=== PATIENT | male | born 1945 | race Caucasian/White ===

== ENCOUNTER 2017-01-03 15:52 | Observation (INO) | payer MEDICARE, OTHER ==
[~2017-01-03] VITALS: Ht 170.2 cm; Wt 107.6 kg
[~2017-01-03 15:52] MED LIST: ASP81TEC PO; ATOR40TA PO; ATR20T PO; BENA1TAB12 PO; DICL50TA4 PO; FEXO-104 PO; LOSA25TA5 PO; NABU750T PO; OMEG1CAP51 PO; OMEP20CA12 PO; OMG1KC PO; SLMFT1E INH; TEST75GE3 TD
--- OUTSIDE RECORDS SUMMARY | 2017-01-03 15:58 | XMS REPORT | Continuity of Care Document ---
Author Author [facility] Organization [facility] Address Unknown Phone Unavailable Care Team Providers Care Lineman A Class Name Role Phone Therese Avila PCP [phone] Source Comments Some departments are not documenting in the electronic medical record. If you do not see the information that you expected, contact Release of Information in the Health Information Management department at [phone] for further assistance in locating additional records.[facility] Active Allergies and Adverse Reactions No Active Allergies Current Medications Prescription Sig. Disp. Refills Start End Date Status Date losartan/hydrochlorothiaz Take 1 Tab by mouth Active coty (HYZAAR) 100/25 mg daily. tablet 1 Tab atorvastatin (LIPITOR) 40 Take 40 mg by mouth Active mg tablet daily. diclofenac sodium DR Take 75 mg by mouth twice Active (VOLTAREN) 75 mg tablet daily. omeprazole DR(+) Take 20 mg by mouth Active (PRILOSEC) 20 mg capsule daily. aspirin 81 mg chewable Take 81 mg by mouth Active tablet daily. fexofenadine(+) (DASH) Take 180 mg by mouth Active 180 mg tablet daily. [place]-3 Fatty Take 1 Cap by mouth Active Acids-Vitamin E (FISH daily. OIL) 1,000 mg cap albuterol (VENTOLIN HFA, Inhale 2 Puffs by mouth Active PROAIR HFA) 90 every 4 hours as needed. mcg/actuation inhaler testosterone (ANDROGEL) Apply to top of skin as Active 1.62 % (20.25 mg/1.25 directed. 2 pumps rubbed gram) GlPk into skin daily fluticasone-salmeterol Inhale 1 Puff by mouth Active (ADVAIR DISKUS) 250-50 every 12 hours. mcg inhalation disk HYDROcodone/acetaminophen Take 1-2 Tabs by mouth Active (NORCO; VICODIN) 5-325 mg every 6 hours as needed. 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 Social History Tobacco Use Types Packs/Day Years Used Date Former Smoker Comments: quit 2005 Alcohol Use Drinks/Week oz/Week Comments Yes Last Filed Vital Signs Vital Sign Reading Time Taken Blood Pressure 123/65 02/14/2013 12:23 PM CDT Pulse 76 02/14/2013 12:23 PM CDT Temperature 37.3 C (99.1 F) 02/14/2013 12:23 PM CDT Respiratory Rate - - Height - - Weight 105.416 kg (232 lb 6.4 02/14/2013 12:23 PM CDT oz) Body Mass Index - - Oxygen Saturation - - Plan of Care Health Maintenance Due Date Last Done Comments Physical (Comprehensive) 02/12/1952 Exam Pertussis Vaccine 02/12/1956 Tetanus Vaccine 1962 Colorectal Cancer 1995 Screening Shingles Vaccine 2005 Prevnar/Pneumovax (#1) 2010 Influenza Vaccine 06/23/2016 Results from Last 3 Months Not on file
[2017-01-03] MEDS ORDERED: RT-ALBUTEROL/IPRATROPIUM 3 ML (DUONEB) VIAL INH ONE ×2 (16:15→16:30)
[2017-01-03] MEDS ORDERED: methylPREDNISolone 125 MG (Solu-MEDROL) VIAL IVP ONE (16:30)
[2017-01-03 16:43] LABS: ABG BASE EXCESS -3.6 MMOL/L (-2.5-2.5); ABG HCO3 20 MMOL/L (23-27); ABG OXYGEN SATURATION 89 % (94-100); ABG PCO2 34 MMHG (35-45); ABG PO2 63 MMHG (79-93); ABG TCO2 21.2 MMOL/L (21.0-31.0)
[2017-01-03 16:44] LABS: ALLENS TEST YES-POS; PATIENT TEMP 101
--- NOTE | 2017-01-03 16:49 | Diagnostic Imaging Report ---
Portable upright radiograph of the chest. INDICATION: Shortness of breath. FINDINGS: There is mild left basilar atelectasis. The right lung is clear. The heart size is normal. There is no effusion or pneumothorax. The mediastinum and wilmar appear unremarkable. IMPRESSION: Left basilar atelectasis. Dictated by: Dictated on workstation # [id number]
[2017-01-03 16:54] LABS: BASOPHILS % (AUTO) 0 % (0-10); EOSINOPHILS # (AUTO) 0.1 10^3/uL (0.0-0.3); EOSINOPHILS % (AUTO) 1 % (0-10); LYMPHOCYTES # (AUTO) 1.1 X 10^3 (1.0-4.0); LYMPHOCYTES % (AUTO) 11 % (12-44); MEAN CORPUSCULAR HEMOGLOBIN 31 PG (25-34); MEAN CORPUSCULAR HGB CONC 34 G/DL (32-36); MEAN CORPUSCULAR VOLUME 92 FL (80-99); MEAN PLATELET VOLUME 9.9 FL (7.4-10.4); MONOCYTES # (AUTO) 0.6 X 10^3 (0.0-1.0); MONOCYTES % (AUTO) 5 % (0-12); NEUTROPHILS # (AUTO) 8.8 X 10^3 (1.8-7.8); NEUTROPHILS % (AUTO) 83 % (42-75); PLATELET COUNT 204 10^3/uL (130-400); RED BLOOD COUNT 4.69 10^6/uL (4.35-5.85); RED CELL DISTRIBUTION WIDTH 13.5 % (10.0-14.5); WHITE BLOOD COUNT 10.6 10^3/uL (4.3-11.0)
--- NOTE | 2017-01-03 16:57 | ED Cough/URI ---
General Chief Complaint: Respiratory Problems Stated Complaint: CONGESTION,SOA Nursing Triage Note: c/o difficulty breathing. Onset 4-5 days ago. Fever noted. Source: patient Exam Limitations: no limitations History of Present Illness Time seen by provider: 16:56 Initial Comments To ER with difficulty breathing for the past 4-5 days but became significant only worse this morning. He does wear oxygen and a C Pap at night for history of COPD. He is febrile at 101. He does not wear oxygen during the day. Timing/Duration: week, getting worse Severity/Quality: moderate Associated Symptoms: cough Allergies and Home Medications Allergies Coded Allergies: No Known Drug Allergies (Unverified , 04/27/10) Home Medications Aspirin 81 Mg Tabec 81 MG PO DAILY (Reported) Atorvastatin Calcium 40 Mg Tablet 1 EACH PO DAILY (Reported) Diclofenac Potassium 50 Mg Tablet 50 MG PO BID (Reported) Losartan Potassium 25 Mg Tablet 25 MG PO DAILY (Reported) [place]-3 Fatty Acids/Fish Oil 1 Each Capsule 1 EACH PO TID (Reported) Omeprazole 20 Mg Capsule.dr #30 1 CAP PO DAILY (Reported) Salmeterol Xinaf/Fluticasone 1 Diskus Inhp 0 INH DAILY (Reported) ONE PUFF Testosterone 75 Gm Gel.lacquer shader 75 GM TD (Reported) Constitutional: see HPINo chills EENTM: see HPI Respiratory: see HPI cough Cardiovascular: no symptoms reported Genitourinary: no symptoms reported Musculoskeletal: no symptoms reported Skin: no symptoms reported Psychiatric/Neurological: No Symptoms Reported Hematologic/Lymphatic: No Symptoms Reported Past Ilvmjzm-Fjqvcc-Agayfm Hx Patient Social History Alcohol Use: Regular Use Recreational Drug Use: No Smoking Status: Former Smoker Recent Foreign Travel: No Contact w/Someone Who Travel: No Recent Infectious Disease Expo: No Immunizations Up To Date Date of Pneumonia Vaccine: Aug 24, 2010 Date of Influenza Vaccine: Jul 24, 2012 Respiratory Hx Respiratory Disorders: Yes Cardiovascular Hx Cardiac Disorders: Yes Neurological Hx Neurological Disorders: No Reproductive System Hx Reproductive Disorders: No Genitourinary Hx Genitourinary Disorders: No Gastrointestinal Hx Gastrointestinal Disorders: Yes (GAS) Musculoskeletal Hx Musculoskeletal Disorders: No Endocrine Hx Endocrine Disorders: Yes HEENT HX ENT Disorders: No Blood Transfusions Hx Blood Disorders: No Physical Exam Vital Signs Vital Sign - Last 12Hours 01/03/17 01/03/17 16:22 16:30 Temp 100.3 B/P 166/80 Pulse Ox 92 O2 Delivery High Flow NC O2 Flow Rate 4 Capillary Refill : Less Than 3 Seconds General Appearance: WD/WN mild distress no apparent distress Eyes: Bilateral Eye EOMI, Bilateral Eye Normal Inspection, Bilateral Eye PERRL HEENT: PERRL/EOMI normal ENT inspection Respiratory: no respiratory distress no accessory muscle use accessory muscle use other (decreased lung sounds in the right base) Cardiovascular: regular rate, rhythm no murmur Gastrointestinal: non tender soft Extremities: normal range of motion non-tender Neurologic/Psychiatric: alert normal mood/affect oriented x 3 Skin: normal color warm/dry Focused Exam Lactic Acid Level Laboratory Tests Test 01/03/17 16:46 Alanine Aminotransferase (ALT/SGPT) 30U/L (0-55) Albumin 4.4G/DL (3.2-4.5) Alkaline Phosphatase 121U/L (40-136) Anion Gap 14MMOL/L (5-14) Aspartate Amino Transf (AST/SGOT) 16U/L (5-34) BUN/Creatinine Ratio 13 Blood Urea Nitrogen 18MG/DL (7-18) Calcium Level 9.4MG/DL (8.5-10.1) Carbon Dioxide Level 22MMOL/L (21-32) Chloride Level 106MMOL/L (98-107) Creatinine 1.37MG/DL (0.60-1.30) H Estimat Glomerular Filtration Rate 51 Glucose Level 173MG/DL (70-105) H Lactic Acid Level 1.86MMOL/L (0.50-2.00) Potassium Level 4.3MMOL/L (3.6-5.0) Sodium Level 142MMOL/L (135-145) Total Bilirubin 0.5MG/DL (0.1-1.0) Total Protein 7.7G/DL (6.4-8.2) Progress/Results/Core Measures Results/Orders Lab Results Laboratory Tests Test 01/03/17 16:35 01/03/17 16:46 Range/Units Vaibhav Test YES-POS Arterial Blood Base Excess -3.6 L -2.5-2.5 MMOL/L Arterial Blood HCO3 20 L 23-27 MMOL/L Arterial Blood Oxygen Saturation 89 L 94-100 % Arterial Blood Partial Pressure CO2 34 L 35-45 MMHG Arterial Blood Partial Pressure O2 63 L 79-93 MMHG Arterial Blood Total CO2 21.2 21.0-31.0 MMOL/L Arterial Blood pH 7.40 7.37-7.43 Blood Gas Inspired Oxygen 4L Blood Gas Patient Temperature 101 Blood Gas Puncture Site RT RAD Blood Gas Ventilator Setting NO Activated Partial Thromboplast Time 25 24-35 SEC Alanine Aminotransferase (ALT/SGPT) 30 0-55 U/L Albumin 4.4 3.2-4.5 G/DL Alkaline Phosphatase 121 40-136 U/L Anion Gap 14 5-14 MMOL/L Aspartate Amino Transf (AST/SGOT) 16 5-34 U/L BUN/Creatinine Ratio 13 Basophils # (Auto) 0.0 0.0-0.1 10^3/uL Basophils (%) (Auto) 0 0-10 % Blood Urea Nitrogen 18 7-18 MG/DL Calcium Level 9.4 8.5-10.1 MG/DL Carbon Dioxide Level 22 21-32 MMOL/L Chloride Level 106 98-107 MMOL/L Creatinine 1.37 H 0.60-1.30 MG/DL Eosinophils # (Auto) 0.1 0.0-0.3 10^3/uL Eosinophils (%) (Auto) 1 0-10 % Estimat Glomerular Filtration Rate 51 Glucose Level 173 H 70-105 MG/DL Hematocrit 43 40-54 % Hemoglobin 14.6 13.3-17.7 G/DL INR Comment 1.1 0.8-1.4 Lactic Acid Level 1.86 0.50-2.00 MMOL/L Lymphocytes # (Auto) 1.1 1.0-4.0 X 10^3 Lymphocytes (%) (Auto) 11 L 12-44 % Mean Corpuscular Hemoglobin 31 25-34 PG Mean Corpuscular Hemoglobin Concent 34 32-36 G/DL Mean Corpuscular Volume 92 80-99 FL Mean Platelet Volume 9.9 7.4-10.4 FL Monocytes # (Auto) 0.6 0.0-1.0 X 10^3 Monocytes (%) (Auto) 5 0-12 % Neutrophils # (Auto) 8.8 H 1.8-7.8 X 10^3 Neutrophils (%) (Auto) 83 H 42-75 % Platelet Count 204 130-400 10^3/uL Potassium Level 4.3 3.6-5.0 MMOL/L Prothrombin Time 13.7 12.2-14.7 SEC Red Blood Count 4.69 4.35-5.85 10^6/uL Red Cell Distribution Width 13.5 10.0-14.5 % Sodium Level 142 135-145 MMOL/L Total Bilirubin 0.5 0.1-1.0 MG/DL Total Protein 7.7 6.4-8.2 G/DL White Blood Count 10.6 4.3-11.0 10^3/uL Micro Results Microbiology 01/03/17 Influenza Types A,B Antigen (ALECIA) - Final, Complete My Orders Orders-VIRIDIANA PELAYO [employer]PERATOR Methylprednisolone Sod Succ (Solu-Medrol (01/03/17 16:30) Albuterol/Ipra Inhalation Soln (Duoneb I (01/03/17 16:30) Svn Sm Volume Nebulizer Rt-Rfs (01/03/17 16:30) Arterial Blood Gas (01/03/17 16:30) Acetaminophen Tablet (Tylenol Tablet) (01/03/17 17:30) Medications Given in ED Current Medications Medications Dose Ordered Sig/Malik Route Start Time Stop Time Status Last Admin Dose Admin Acetaminophen 1,000 mg ONCE ONCE PO 01/03/17 17:30 01/03/17 17:31 DC 01/03/17 17:36 1,000 MG Albuterol/ Ipratropium 3 ml ONCE ONCE INH 01/03/17 16:15 01/03/17 16:16 DC 01/03/17 16:21 3 ML Methylprednisolone Sodium Succinate 125 mg ONCE ONCE IVP 01/03/17 16:30 01/03/17 16:32 DC 01/03/17 17:36 125 MG Vital Signs/I&O Vital Sign - Last 12Hours 01/03/17 01/03/17 16:22 16:30 Temp 100.3 B/P 166/80 Pulse Ox 92 93 O2 Delivery High Flow NC O2 Flow Rate 4 Blood Pressure Mean: 108 Diagnostic Imaging Diagonstic Imaging: Xray Plain Films/CT/US/NM/MRI: chest Comments NAME: ASHUTOSH YBARRA MED REC#: [id number] PT STATUS: REG ER : 1945 PHYSICIAN: LEONARD MATOS MD ADMIT DATE: 01/03/17/ER Signed Date of Exam:01/03/17 CHEST 1 VIEW, AP/PA ONLY Portable upright radiograph of the chest. INDICATION: Shortness of breath. FINDINGS: There is mild left basilar atelectasis. The right lung is clear. The heart size is normal. There is no effusion or pneumothorax. The mediastinum and wilmar appear unremarkable. IMPRESSION: Left basilar atelectasis. Dictated by: Dictated on workstation # [id number] Dict: 01/03/17 1646 Trans: 01/03/17 1657 [facility] [id number] Interpreted by: HIEN STEELE MD Electronically signed by: HIEN STEELE MD 01/03/17 1700 Departure Impression Impression: Primary Impression: COPD exacerbation Additional Impression: Influenza Disposition: ADMITTED INPATIENT Condition: Stable Decision to Admit Reason: Admit from ER (General) Decision to Admit/Date: Jan 03, 2017 Time/Decision to Admit Time: 17:27 Departure-Patient Inst. Referrals: CHENCHO CONTRERAS DO (PCP/Family) Primary Care Physician VIRIDIANA PELAYO APRN Jan 03, 2017 16:57
[2017-01-03 17:11] LABS: INR 1.1 (0.8-1.4); PROTHROMBIN TIME PATIENT 13.7 SEC (12.2-14.7)
[2017-01-03 17:14] LABS: ALBUMIN 4.4 G/DL (3.2-4.5); BILIRUBIN,TOTAL 0.5 MG/DL (0.1-1.0); CALCIUM 9.4 MG/DL (8.5-10.1); CREATININE SERUM 1.37 MG/DL (0.60-1.30); POTASSIUM 4.3 MMOL/L (3.6-5.0); TOTAL PROTEIN 7.7 G/DL (6.4-8.2)
[2017-01-03] MEDS ORDERED: ACETAMINOPHEN 500 MG TAB (TYLENOL) PO ONE (17:30)
[2017-01-03] MEDS ORDERED: IBUPROFEN 800 MG (MOTRIN) TAB PO ONE (19:00)
[2017-01-03 19:20] LABS: BILIRUBIN,URINE NEGATIVE (NEGATIVE); KETONES,URINE NEGATIVE (NEGATIVE); LEUKOCYTE ESTERASE ,URINE NEGATIVE (NEGATIVE); NITRITE,URINE NEGATIVE (NEGATIVE); PH,URINE 7 (5-9); PROTEIN,URINE 2+ (NEGATIVE); UROBILINOGEN,URINE NORMAL (NORMAL)
[2017-01-03 19:27] LABS: WBC,URINE RARE /HPF
[2017-01-03 20:00] VITALS: BP 146/68
[2017-01-03] MEDS ORDERED: ACETAMINOPHEN 325 MG TABLET/CAPLET (TYLENOL) PO PRN (20:30)
[2017-01-03] MEDS: cefTRIAXone 1 GM/NS 50 ML IVPB IV SCH ×2 (21:26)
[2017-01-03] MEDS: OSELTAMIVIR 75 MG (TAMIFLU) BOX OF 10 PO SCH (21:27)
[2017-01-04] VITALS: BP 125/58
[2017-01-04 03:35] VITALS: BP 120/57
[2017-01-04] MEDS ORDERED: methylPREDNISolone 125 MG (Solu-MEDROL) VIAL IVP SCH (06:00)
[2017-01-04 06:01] LABS: BASOPHILS % (AUTO) 0 % (0-10); EOSINOPHILS % (AUTO) 0 % (0-10); LYMPHOCYTES # (AUTO) 0.8 X 10^3 (1.0-4.0); LYMPHOCYTES % (AUTO) 5 % (12-44); MEAN CORPUSCULAR HEMOGLOBIN 31 PG (25-34); MEAN CORPUSCULAR HGB CONC 34 G/DL (32-36); MEAN CORPUSCULAR VOLUME 91 FL (80-99); MEAN PLATELET VOLUME 10.4 FL (7.4-10.4); MONOCYTES # (AUTO) 0.5 X 10^3 (0.0-1.0); MONOCYTES % (AUTO) 3 % (0-12); NEUTROPHILS # (AUTO) 14.6 X 10^3 (1.8-7.8); NEUTROPHILS % (AUTO) 92 % (42-75); PLATELET COUNT 197 10^3/uL (130-400); RED BLOOD COUNT 4.25 10^6/uL (4.35-5.85); RED CELL DISTRIBUTION WIDTH 13.3 % (10.0-14.5); WHITE BLOOD COUNT 15.9 10^3/uL (4.3-11.0)
[2017-01-04 06:18] LABS: BAND NEUTROPHILS 4 %; BASOPHILS % (MANUAL) 0 %; EOSINOPHILS % (MANUAL) 0 %; LYMPHOCYTES % (MANUAL) 4 %; NEUTROPHILS % (MANUAL) 88 %
[2017-01-04] MEDS: ENOXAPARIN 40 MG/0.4 ML (LOVENOX) SYR SC SCH (07:03)
[2017-01-04 07:09] LABS: ALBUMIN 3.7 G/DL (3.2-4.5); BILIRUBIN,TOTAL 0.4 MG/DL (0.1-1.0); CALCIUM 8.8 MG/DL (8.5-10.1); CREATININE SERUM 1.35 MG/DL (0.60-1.30); POTASSIUM 4.5 MMOL/L (3.6-5.0); TOTAL PROTEIN 6.5 G/DL (6.4-8.2)
[2017-01-04] MEDS ORDERED: CATHETER FLUSH 10 ML SYR IV PRN (07:15)
--- NOTE | 2017-01-04 07:16 | History & Physical-Hospitalist ---
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 He's never had an exacerbation of COPD but began feeling feverish and lethargic and presented to the emergency room and upon workup revealed influenza A with exacerbation of COPD with hypoxia this requiring oxygen supplementation. Currently he feels much better is able to get up and around in the room and overall responding to IV steroids and Tamiflu. Source: patient Exam Limitations: no limitations Date Seen 01/04/17 Attending Physician Sudhakar Barry MD PCP Therese Avila DO Referring Physician Date of Admission Jan 03, 2017 at 17:34 Home Medications & Allergies Home Medications Reviewed patient Home Medication Reconciliation Form Allergies Coded Allergies: No Known Drug Allergies (Unverified , 04/27/10) Past Nnrrmld-Wfsgyf-Vgbdqy Hx Patient Social History Marrital Status: Employed/Student: retired Alcohol Use: Regular Use Recreational Drug Use: No Smoking Status: Former Smoker Type Used: Cigarettes Physical Abuse Screen: No Sexual Abuse: No Recent Foreign Travel: No Contact w/other who traveled: No Recent Hopitalizations: No Recent Infectious Disease Expo: No Immunizations Up To Date Date of Pneumonia Vaccine: Jul 23, 2016 Date of Influenza Vaccine: Jul 23, 2016 Seasonal Allergies Seasonal Allergies: Yes Surgeries HX Surgeries: Yes Surgeries: Eye Surgery, Orthopedic Respiratory Hx Respiratory Disorders: Yes Respiratory Disorders: COPD, Pneumonia Cardiovascular Hx Cardiovascular Disorders: Yes Cardiac Disorders: High Cholesterol, Hypertension Neurological Hx Neurological Disorders: No Reproductive System Hx Reproductive Disorders: No Genitourinary Hx Genitourinary Disorders: Yes Genitourinary Disorders: Renal Failure Gastrointestinal Hx Gastrointestinal Disorders: Yes (GAS) Gastrointestinal Disorders: Gastroesophageal Reflux, Chronic Constipation Musculoskeletal Hx Musculoskeletal Disorders: Yes Musculoskeletal Disorders: Arthritis, Chronic Back Pain, Fractures Endocrine Hx Endocrine Disorders: Yes Endocrine Disorders: Diabetes, Non-Insulin dep HEENT HX ENT Disorders: No HEENT Disorders: Cataract, Eye Injury Loss of Vision: Left Hearing Impairment: Hard of Hearing Cancer Hx Cancer: No Psychosocial Hx Psychiatric Problems: No Integumentary HX Skin/Integumentary Disorder: No Blood Transfusions Hx Blood Disorders: No Adverse Reaction to a Blood Tr: No Family Medical History Family Hx: Arthritis 19 FATHER 19 MOTHER G8 SISTER FH: breast cancer 19 MOTHER FH: congestive heart failure 19 MOTHER FH: lung cancer 19 FATHER FH: ovarian cancer G8 SISTER Seizure disorder G8 SISTER Review of Systems Constitutional: see HPI dizziness fever malaise weakness EENTM: no symptoms reported Respiratory: cough Cardiovascular: no symptoms reported Gastrointestinal: no symptoms reported Genitourinary: no symptoms reported Musculoskeletal: no symptoms reported Skin: no symptoms reported Psychiatric/Neurological: No Symptoms Reported All Other Systems Reviewed Negative Unless Noted: Yes Physical Exam Physical Exam Vital Signs Vital Sign - Last 12Hours 01/03/17 01/03/17 01/03/17 01/03/17 16:22 16:30 16:32 19:10 Temp 100.3 Pulse 105 Resp 22 B/P 166/80 Pulse Ox 92 O2 Delivery High Flow NC O2 Flow Rate 4 FiO2 92 Capillary Refill : Less Than 3 Seconds General Appearance: No Apparent Distress WD/WN Chronically ill Obese Other ( fatigued) Eyes: Bilateral Eye Normal Inspection, Bilateral Eye PERRL HEENT: PERRL/EOMI Normal ENT Inspection Pharynx Normal Neck: Full Range of Motion Normal Inspection Non Tender Supple Carotid Bruit Respiratory: Chest Non Tender No Accessory Muscle Use No Respiratory Distress Crackles Decreased Breath Sounds Wheezing Cardiovascular: Regular Rate, Rhythm No Edema No Gallop No JVD No Murmur Normal Peripheral Pulses Gastrointestinal: Normal Bowel Sounds No Organomegaly No Pulsatile Mass Non Tender Soft Back: Normal Inspection No CVA Tenderness No Vertebral Tenderness Extremity: Normal Capillary Refill Normal Inspection Normal Range of Motion Non Tender No Calf Tenderness No Pedal Edema Neurologic/Psychiatric: Alert Oriented x3 No Motor/Sensory Deficits Normal Mood/Affect Skin: Normal Color Warm/Dry Lymphatic: No Adenopathy Results Results/Procedures Lab Laboratory Tests 01/03/17 16:46 01/04/17 05:10 Assessment/Plan Admission Diagnosis Assessment: Acute influenza A with hypoxia and wheezing causing exacerbation of known COPD Hypoxia requiring oxygen supplementation Diabetes mellitus Hypertension Hyperlipidemia Chronic renal insufficiency BPH Assessment and Plan IV steroids Oxygen supplementation and home O2 evaluation Nebulizer treatments Tamiflu Check labs in a.m. SCDs and Lovenox for DVT prophylaxis Clinical Quality Measures DVT/VTE Risk/Contraindication: Risk Factor Score Per Nursin RFS Level Per Nursing on Admit: 4+=Very High THERESE AVILA DO Jan 04, 2017 07:15
[2017-01-04] MEDS: RT-ALBUTEROL/IPRATROPIUM 3 ML (DUONEB) VIAL INH SCH ×3 (07:39→14:13)
[2017-01-04] MEDS: RT-BUDESONIDE NEBS 0.5 MG/2ML (PULMICORT) AMP INH SCH ×2 (07:39→19:18)
[2017-01-04 08:00] VITALS: BP 146/69
[2017-01-04] MEDS ORDERED: LOSA1TAB70 PO (08:17)
[2017-01-04] MEDS ORDERED: OMEP20CA12 PO (08:17)
[2017-01-04] MEDS ORDERED: HYDR-3812 PO ×2 (08:17→08:29)
[2017-01-04] MEDS ORDERED: AMLO5TAB2 PO (08:17)
[2017-01-04] MEDS ORDERED: GLIM1TAB PO (08:29)
[2017-01-04] MEDS ORDERED: CARB1DRO5 OS (08:29)
[2017-01-04] MEDS ORDERED: DICL75TA2 PO (08:29)
[2017-01-04] MEDS ORDERED: PLTR10OP OS (08:29)
[2017-01-04] MEDS ORDERED: FLUT1DIS26 INH (08:29)
[2017-01-04] MEDS ORDERED: SENN-33 PO (08:29)
[2017-01-04] MEDS ORDERED: DIFL5DRO OS (08:29)
[2017-01-04] MEDS ORDERED: CARB15DR74 OU (08:29)
[2017-01-04] MEDS ORDERED: OMEG-109 PO (08:29)
[2017-01-04] MEDS ORDERED: FEXO180T84 PO (08:30)
[2017-01-04] MEDS: OSELTAMIVIR 75 MG (TAMIFLU) BOX OF 10 PO SCH ×2 (09:28→21:59)
[2017-01-04] MEDS: inSUlin ASPART (NovoLOG) 1 UNIT/0.01 ML (CHARGE PER UNIT) SC SCH ×3 (11:27→22:02)
[2017-01-04 12:00] VITALS: BP 148/67
[2017-01-04] MEDS: methylPREDNISolone 40 MG/ML (Solu-MEDROL) VIAL IV SCH ×2 (13:21→22:08)
[2017-01-04] MEDS: POLY/TRIMETH (POLYTRIM) OPHTH 10 ML BTL OS SCH ×3 (13:22→22:04)
[2017-01-04] MEDS: CATHETER FLUSH 10 ML SYR IV SCH ×2 (13:22→22:04)
[2017-01-04] MEDS: HYDROcodone/APAP 5 MG/325 MG (LORTAB) TAB PO SCH (13:23)
[2017-01-04 16:41] VITALS: BP 139/56
[2017-01-04 20:19] VITALS: BP 119/56
[2017-01-04] MEDS ORDERED: HYDROcodone/APAP 5 MG/325 MG (LORTAB) TAB PO SCH (21:00)
[2017-01-04] MEDS ORDERED: OMEPRAZOLE 20 MG (PriLOSEC) CAP PO SCH (21:00)
[2017-01-04] MEDS ORDERED: ATORVASTATIN 40 MG (LIPITOR) TABLET PO SCH (21:00)
[2017-01-04] MEDS ORDERED: ASPIRIN E.C. 81 MG (ECOTRIN) TAB PO SCH (21:00)
[2017-01-04] MEDS: SENNA W/DOCUSATE (SENOKOT S) TABLET PO SCH (21:56)
[2017-01-04] MEDS: cefTRIAXone 1 GM/NS 50 ML IVPB IV SCH ×2 (21:59)
[2017-01-05] VITALS: BP 113/56
[2017-01-05 04:00] VITALS: BP 127/68
[2017-01-05 06:51] LABS: BASOPHILS % (AUTO) 0 % (0-10); EOSINOPHILS % (AUTO) 0 % (0-10); LYMPHOCYTES # (AUTO) 1.1 X 10^3 (1.0-4.0); LYMPHOCYTES % (AUTO) 7 % (12-44); MEAN CORPUSCULAR HEMOGLOBIN 31 PG (25-34); MEAN CORPUSCULAR HGB CONC 34 G/DL (32-36); MEAN CORPUSCULAR VOLUME 92 FL (80-99); MEAN PLATELET VOLUME 10.6 FL (7.4-10.4); MONOCYTES # (AUTO) 0.5 X 10^3 (0.0-1.0); MONOCYTES % (AUTO) 3 % (0-12); NEUTROPHILS # (AUTO) 14.2 X 10^3 (1.8-7.8); NEUTROPHILS % (AUTO) 90 % (42-75); PLATELET COUNT 217 10^3/uL (130-400); WHITE BLOOD COUNT 15.8 10^3/uL (4.3-11.0)
[2017-01-05] MEDS: ENOXAPARIN 40 MG/0.4 ML (LOVENOX) SYR SC SCH (07:00)
[2017-01-05] MEDS: methylPREDNISolone 40 MG/ML (Solu-MEDROL) VIAL IV SCH (07:00)
[2017-01-05] MEDS: HYDROcodone/APAP 5 MG/325 MG (LORTAB) TAB PO SCH (07:01)
[2017-01-05] MEDS: CATHETER FLUSH 10 ML SYR IV SCH (07:01)
[2017-01-05 07:11] LABS: ALBUMIN 3.7 G/DL (3.2-4.5); BILIRUBIN,TOTAL 0.3 MG/DL (0.1-1.0); CALCIUM 8.8 MG/DL (8.5-10.1); CREATININE SERUM 1.31 MG/DL (0.60-1.30); POTASSIUM 4.6 MMOL/L (3.6-5.0); TOTAL PROTEIN 6.4 G/DL (6.4-8.2)
[2017-01-05] MEDS: inSUlin ASPART (NovoLOG) 1 UNIT/0.01 ML (CHARGE PER UNIT) SC SCH ×2 (07:17→11:00)
[2017-01-05] MEDS: RT-ALBUTEROL/IPRATROPIUM 3 ML (DUONEB) VIAL INH SCH (07:27)
[2017-01-05] MEDS: RT-BUDESONIDE NEBS 0.5 MG/2ML (PULMICORT) AMP INH SCH (07:27)
[2017-01-05 08:00] VITALS: BP_SYST 123; BP_SYST 136; BP_DIAS 60; BP_DIAS 68
[2017-01-05] MEDS ORDERED: GLIMEPIRIDE 1 MG (AMARYL) TAB PO SCH (09:00)
[2017-01-05] MEDS ORDERED: LORATADINE (CLARITIN) 10 MG TAB PO SCH (09:00)
[2017-01-05] MEDS ORDERED: LOSARTAN PO SCH (09:00)
[2017-01-05] MEDS ORDERED: amLODIPine 5 MG (NORVASC) TAB PO SCH (09:00)
[2017-01-05] MEDS ORDERED: HYDROCHLOROTHIAZIDE PO SCH (09:00)
[2017-01-05] MEDS: OSELTAMIVIR 75 MG (TAMIFLU) BOX OF 10 PO SCH (09:02)
[2017-01-05] MEDS: POLY/TRIMETH (POLYTRIM) OPHTH 10 ML BTL OS SCH (09:04)
[2017-01-05] MEDS: SENNA W/DOCUSATE (SENOKOT S) TABLET PO SCH (09:06)
--- NOTE | 2017-01-05 10:18 | Discharge Summary-Hospitalist ---
Diagnosis/Chief Complaint Date of Admission Jan 03, 2017 at 19:35 Date of Discharge Admission Diagnosis Assessment: Acute influenza A with hypoxia and wheezing causing exacerbation of known COPD Hypoxia requiring oxygen supplementation Diabetes mellitus Hypertension Hyperlipidemia Chronic renal insufficiency BPH Discharge Diagnosis Assessment: Acute influenza A with hypoxia and wheezing causing exacerbation of known COPD Hypoxia requiring oxygen supplementation Diabetes mellitus Hypertension Hyperlipidemia Chronic renal insufficiency BPH Leukocytosis due to steroid effect at 15,000 IV steroids Oxygen supplementation and home O2 evaluation Nebulizer treatments Tamiflu Check labs in a.m. 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 He's never had an exacerbation of COPD but began feeling feverish and lethargic and presented to the emergency room and upon workup revealed influenza A with exacerbation of COPD with hypoxia this requiring oxygen supplementation. Currently he feels much better is able to get up and around in the room and overall responding to IV steroids and Tamiflu. Notes from 01/05/17: Chart Review: WBC 15.8 Hgb 12.4 CMP normal except Creat 1.31 Sugars high on steroids Pt does not qualify for Home O2 Patient Interview: Pt states that he is breathing much better. Pt had a BM yesterday. Physical exam stable. Pt uses [facility] for pharmacy. no fever, vital signs stable, pleasant, improved Regular rate and rhythm, clear to auscultation bilaterally with only subtle wheezing this time on end expiratory phase No edema Plan: DC with steroids and antibiotic Close follow-up with Dr. Avila next Monday Scribed by Tung Arroyo under the direct supervision of Dr. Avila. Discharge Summary Discharge Physical Examination Allergies: Coded Allergies: No Known Drug Allergies (Unverified , 04/27/10) Vitals & I&Os Vital Signs Date Time Temp Pulse Resp B/P Pulse Ox O2 Delivery O2 Flow Rate FiO2 01/05/17 08:00 Nasal Cannula 4.00 01/05/17 08:00 97.8 01/05/17 08:00 92 16 136/60 92 01/04/17 09:00 92 Hospital Course Labs (last 24 hrs) Laboratory Tests 01/04/17 11:01: Glucometer 265H 01/04/17 15:59: Glucometer 276H 01/04/17 20:39: Glucometer 294H 01/05/17 06:23: Alanine Aminotransferase (ALT/SGPT) 24, Albumin 3.7, Alkaline Phosphatase 75, Anion Gap 11, Aspartate Amino Transf (AST/SGOT) 14, BUN/Creatinine Ratio 21, Basophils # (Auto) 0.0, Basophils (%) (Auto) 0, Blood Urea Nitrogen 28H, Calcium Level 8.8, Carbon Dioxide Level 22, Chloride Level 107, Creatinine 1.31H , Eosinophils # (Auto) 0.0, Eosinophils (%) (Auto) 0, Estimat Glomerular Filtration Rate 54, Glucose Level 297H, Hematocrit 37L, Hemoglobin 12.4L, Lymphocytes # (Auto) 1.1, Lymphocytes (%) (Auto) 7L, Mean Corpuscular Hemoglobin 31, Mean Corpuscular Hemoglobin Concent 34, Mean Corpuscular Volume 92, Mean Platelet Volume 10.6H, Monocytes # (Auto) 0.5, Monocytes (%) (Auto) 3, Neutrophils # (Auto) 14.2H, Neutrophils (%) (Auto) 90H, Platelet Count 217, Potassium Level 4.6, Red Blood Count 4.00L, Red Cell Distribution Width 13.0, Sodium Level 140, Total Bilirubin 0.3, Total Protein 6.4, White Blood Count 15.8H Microbiology 01/03/17 Blood Culture - Preliminary, Resulted No growth 01/03/17 Influenza Types A,B Antigen (ALECIA) - Final, Complete Pending Labs Laboratory Tests 01/05/17 06:23: Alanine Aminotransferase (ALT/SGPT) 24, Albumin 3.7, Alkaline Phosphatase 75, Anion Gap 11, Aspartate Amino Transf (AST/SGOT) 14, BUN/Creatinine Ratio 21, Basophils # (Auto) 0.0, Basophils (%) (Auto) 0, Blood Urea Nitrogen 28, Calcium Level 8.8, Carbon Dioxide Level 22, Chloride Level 107, Creatinine 1.31, Eosinophils # (Auto) 0.0, Eosinophils (%) (Auto) 0, Estimat Glomerular Filtration Rate 54, Glucose Level 297, Hematocrit 37, Hemoglobin 12.4, Lymphocytes # (Auto) 1.1, Lymphocytes (%) (Auto) 7, Mean Corpuscular Hemoglobin 31, Mean Corpuscular Hemoglobin Concent 34, Mean Corpuscular Volume 92, Mean Platelet Volume 10.6, Monocytes # (Auto) 0.5, Monocytes (%) (Auto) 3, Neutrophils # (Auto) 14.2, Neutrophils (%) (Auto) 90, Platelet Count 217, Potassium Level 4.6, Red Blood Count 4.00, Red Cell Distribution Width 13.0, Sodium Level 140, Total Bilirubin 0.3, Total Protein 6.4, White Blood Count 15.8 Discharge Home Medications: Active Scripts Active Cefdinir 300 Mg Capsule 300 Mg PO BID Prednisone 10 Mg Tab.ds.pk 10 Mg PO DAILY Take 6 tabs(60mg)daily,decrease by 1 tab(10MG)daily. Tamiflu (Oseltamivir Phosphate) 75 Mg Cap 0 Each PO BID 3 Days Reported Renea Allergy (Fexofenadine HCl) 180 Mg Tablet 180 Mg PO DAILY Mala-Colace Tablet (Sennosides/Docusate Sodium) 1 Each Tablet 1 Tab PO BID Diclofenac Sodium 75 Mg Tablet.dr 75 Mg PO BID PRN Glimepiride 1 Mg Tablet 1 Mg PO DAILY Advair 250-50 Diskus (Fluticasone/Salmeterol) 1 Each Blst.w.dev 1 Puff INH DAILY Durezol (Difluprednate) 5 Ml Drops 1 Drop OS HS Refresh Tears (Carboxymethylcellulose Sodium) 15 Ml Drops 1-2 Drops OU QID PRN Refresh Celluvisc (Carboxymethylcellulose Sodium) 1 Each Droper.gel 1 Drop OS HS Polymyxin B-Tmp Eye Drops (Polymyxin B Sulf/Trimethoprim) 10 Ml Drops 1 Drop OS QID Hydrocodon -Acetaminophen 5-325 (Hydrocodone/Acetaminophen) 1 Each Tablet 2 Tab PO HS Fish Oil 1,200 mg Softgel ([place]-3 Fatty Acids/Fish Oil) 1 Each Capsule 1,200 Mg PO BID Omeprazole 20 Mg Capsule.dr 20 Mg PO HS Losartan-Hctz 100-25 mg Tab (Losartan/Hydrochlorothiazide) 1 Each Tablet 1 Tab PO DAILY Hydrocodon -Acetaminophen 5-325 (Hydrocodone/Acetaminophen) 1 Each Tablet 1 Tab PO 0700,1500 Amlodipine Besylate 5 Mg Tablet 5 Mg PO DAILY Aspirin Ec 81 Mg (Aspirin) 81 Mg Tabec 81 Mg PO HS Lipitor 40MG (Atorvastatin Calcium) 40 Mg Tablet 40 Mg PO HS Instructions to patient/family Please see electonic discharge instructions given to patient. Clinical Quality Measures DVT/VTE Risk/Contraindication: Risk Factor Score Per Nursin RFS Level Per Nursing on Admit: 4+=Very High CHENCHO AVILA DO Jan 05, 2017 10:18
[2017-01-05] MEDS ORDERED: CEFD300C3 PO (10:23)
[2017-01-05] MEDS ORDERED: OSLT75C PO (10:23)
[2017-01-05] MEDS ORDERED: PRED10TA22 PO (10:23)
--- NOTE | 2017-01-05 10:24 | Discharge Instructions ---
Discharge Instructions Discharge Medications New, Converted or Re-Newed RX: Transmitted to Pharmacy New Medications: Cefdinir (Cefdinir) 300 Mg Capsule 300 MG PO BID #8 CAP Prednisone (Prednisone) 10 Mg Tab.ds.pk 10 MG PO DAILY Take 6 tabs(60mg)daily,decrease by 1 tab(10MG)daily. #21 PKG Oseltamivir Phosphate (Tamiflu) 75 Mg Cap 0 EACH PO BID Days 3 CAP Continued Medications: Amlodipine Besylate (Amlodipine Besylate) 5 Mg Tablet 5 MG PO DAILY TAB Aspirin (Aspirin Ec 81 Mg) 81 Mg Tabec 81 MG PO HS TAB Atorvastatin Calcium (Lipitor 40MG) 40 Mg Tablet 40 MG PO HS TAB Carboxymethylcellulose Sodium (Refresh Celluvisc) 1 Each Droper.gel 1 DROP OS HS TUBE Carboxymethylcellulose Sodium (Refresh Tears) 15 Ml Drops 1-2 DROPS OU QID PRN DRY EYES DROPS Diclofenac Sodium (Diclofenac Sodium) 75 Mg Tablet.dr 75 MG PO BID PRN BACK PAIN TAB Difluprednate (Durezol) 5 Ml Drops 1 DROP OS HS EA Fexofenadine HCl (Renea Allergy) 180 Mg Tablet 180 MG PO DAILY TAB Fluticasone/Salmeterol (Advair 250-50 Diskus) 1 Each Blst.w.dev 1 PUFF INH DAILY INHALER Glimepiride (Glimepiride) 1 Mg Tablet 1 MG PO DAILY TAB Hydrocodone/Acetaminophen (Hydrocodon -Acetaminophen 5-325) 1 Each Tablet 1 TAB PO 0700,1500 TAB Hydrocodone/Acetaminophen (Hydrocodon -Acetaminophen 5-325) 1 Each Tablet 2 TAB PO HS TAB Losartan/Hydrochlorothiazide (Losartan-Hctz 100-25 mg Tab) 1 Each Tablet 1 TAB PO DAILY TAB [place]-3 Fatty Acids/Fish Oil (Fish Oil 1,200 mg Softgel) 1 Each Capsule 1200 MG PO BID CAP Omeprazole (Omeprazole) 20 Mg Capsule.dr 20 MG PO HS CAP Polymyxin B Sulf/Trimethoprim (Polymyxin B-Tmp Eye Drops) 10 Ml Drops 1 DROP OS QID EA Sennosides/Docusate Sodium (Mala-Colace Tablet) 1 Each Tablet 1 TAB PO BID TAB Patient Instructions Goal/Follow Up Appt: Dr Avila [place] office 01/09/17 at 3:30pm Activity & Diet Discharge Diet: ADA Diet Activity as Tolerated: Yes CHENCHO AVILA DO Jan 05, 2017 10:24
[2017-01-05] MEDS ORDERED: OSELTAMIVIR 75 MG (TAMIFLU) BOX OF 10 PO SCH (11:00)
[2017-01-05 11:49] VITALS: BP 136/60
[2017-01-05] MEDS ORDERED: methylPREDNISolone 125 MG (Solu-MEDROL) VIAL IV SCH (14:00)
== END 2017-01-05 10:23 | disposition home or self-care (01) ==
LOC: EDUNIT# 15:52 → ER 15:53 → UNDOADMOB 17:34 → 4TH 17:34
PROVIDERS: ADMIT Internal Medicine; ATTEND Internal Medicine
DX: J11.1 Influenza due to unidentified influenza virus with other respiratory manifestations (principal); J44.1 Chronic obstructive pulmonary disease with (acute) exacerbation; E11.22 Type 2 diabetes mellitus with diabetic chronic kidney disease; I12.9 Hypertensive chronic kidney disease with stage 1 through stage 4 chronic kidney disease, or unspecified chronic kidney disease; E78.5 Hyperlipidemia, unspecified; N18.9 Chronic kidney disease, unspecified; N40.0 Benign prostatic hyperplasia without lower urinary tract symptoms; K21.9 Gastro-esophageal reflux disease without esophagitis; Z87.891 Personal history of nicotine dependence; Z79.899 Other long term (current) drug therapy
CPT/HCPCS: 36415; 71010; 80053; 81000; 82805; 82962; 83605; 85007; 85025; 85027; 85610; 85730; 87040; 87804; 94640; 94760; 94761; 96374; G0378

== ENCOUNTER → 2017-12-11 | Outpatient (CLI) | payer MEDICARE, OTHER ==
[~2017-12-11] MED LIST changes: +ACHD5005 PO; +AMLO5TAB2 PO; +CARB15DR74 OU; +CARB1DRO5 OS; +CEFD300C3 PO; +DICL75TA2 PO; +DIFL5DRO OS; +FEXO180T84 PO; +FLUT1DIS26 INH; +GLIM1TAB PO; +LOSA1TAB23 PO; +OMEG-109 PO; +OSLT75C PO; +PLTR10OP OS; +PRED10TA22 PO; +SENN-33 PO
--- NOTE | 2017-12-11 12:52 | Diagnostic Imaging Report ---
PROCEDURE: MRI lumbar spine. TECHNIQUE: Multiplanar, multisequence MRI of the lumbar spine was performed without contrast. INDICATION: No known injury, low back pain on the right, bilateral leg pain, worse on the left. COMPARISON: MRI from 07/23/2015. FINDINGS: For the purposes of this exam there are five lumbar type vertebral bodies with the last well formed disk space designated L5-S1. There is grade 1 retrolisthesis at L3-4. The visualized vertebral bodies demonstrate normal height and marrow signal. There is multilevel disc height loss throughout the lumbar spine. The conus is normal in position and configuration. No large prevertebral or paraspinal soft tissue masses are seen. There is generalized muscular atrophy. The axial images demonstrate: T12-L1: No significant disc bulge. Facet arthropathy. No spinal canal or foraminal stenosis. L1-L2: Mild diffuse disc bulge, marked facet arthropathy, ligamentous infolding. No spinal canal stenosis. No foraminal stenosis. L2-L3: Large diffuse disc bulge, marked facet arthropathy with ligamentous infolding. Complete effacement of the lateral recesses bilaterally. Superimposed disc extrusion in the left lateral recess. This results in severe spinal canal stenosis at this level. There is redundancy of the nerve roots superior to this level. Overall findings appear similar to 2014. There is minimal bilateral foraminal narrowing. L3-L4: Large diffuse disc bulge, marked facet arthropathy. Moderate to severe spinal canal stenosis. Complete effacement of the lateral recess bilaterally. Moderate right foraminal stenosis. Mild left foraminal narrowing. L4-L5: Large diffuse disc bulge, marked facet arthropathy. Effacement of the lateral recesses bilaterally. Moderate spinal canal stenosis. Severe right and moderate to severe left foraminal stenosis. L5-S1: Diffuse disc bulge, severe facet arthropathy. No spinal canal stenosis. Moderate to severe bilateral foraminal stenosis. IMPRESSION: 1. Multilevel degenerative changes, with severe spinal canal stenosis at L2-3, and redundancy of the nerve roots superior to this level. Stenosis appears overall similar to 2014. 2. Multilevel spinal canal and foraminal stenosis, as described above. Dictated by: Dictated on workstation # [id number]
== END ==
LOC: RAD 11:29
PROVIDERS: ATTEND Physician Assistant
DX: M48.07 Spinal stenosis, lumbosacral region (principal); M51.17 Intervertebral disc disorders with radiculopathy, lumbosacral region; M46.87 Other specified inflammatory spondylopathies, lumbosacral region; M46.85 Other specified inflammatory spondylopathies, thoracolumbar region
CPT/HCPCS: 72148

== ENCOUNTER → 2021-03-09 | Outpatient (CLI) | payer MEDICARE, OTHER ==
[~2021-03-09] MED LIST changes: +AMLO-250 PO; -AMLO5TAB2 PO; +CARB15DR OU; -CARB15DR74 OU; -GLIM1TAB PO; +GLIM1TAB4 PO; +OMEP20CA18 PO
--- NOTE | 2021-03-09 08:26 | Diagnostic Imaging Report ---
EXAMINATION: CT head without contrast. TECHNIQUE: Multiple contiguous axial images were obtained through the brain without the use of intravenous contrast. All CT scans use one or more of the following dose optimizing techniques: automated exposure control, MA and/or KvP adjustment based on patient size and exam type or iterative reconstruction. HISTORY: Vertigo for 2 weeks. Syncopal episode. COMPARISON: MRI brain on 11/06/2009. FINDINGS: No large acute territorial ischemia, mass, or hemorrhage. No midline shift or mass effect. The ventricles, cortical sulci, and basilar cisterns are patent and unremarkable. Postsurgical changes are seen in the left globe. The right globe is intact. No acute inflammatory changes are seen in the orbits. Paranasal sinuses are normal. Mastoid air cells are clear. No soft tissue abnormality is seen. No osseus lesions or fractures are seen. IMPRESSION: 1. No large acute territorial ischemia, mass, or hemorrhage. Dictated by: Dictated on workstation # [id number]
--- NOTE | 2021-03-09 12:43 | Diagnostic Imaging Report ---
PROCEDURE: US carotid duplex bilateral. TECHNIQUE: Multiple Real-time grayscale images were obtained over the carotid arteries in various projections bilaterally. Additional spectral analysis and color Doppler duplex images were also obtained. INDICATION: Syncope, hypertension. FINDINGS: There is some atherosclerotic plaque seen at both carotid bifurcations. The velocities and waveforms do not show any significant alterations. Both vertebral arteries are patent with antegrade flow. IMPRESSION: There is atherosclerotic plaque present in both carotid bifurcations but no hemodynamically significant stenosis. Parameters based on the consensus panel Iglesias-Scale and Doppler ultrasound criteria published August 2003, Radiology, Volume 229. DOPPLER (peak systolic velocity M/S Right Left CCA 1.1 1.1 ICA Proximal 1.36 1.1 ICA Mid 1.41 1.1 ICA Distal .97 1.1 RATIO 1.2 1.0 ECA 1.5 1.4 VERT .38 NA Dictated by: Dictated on workstation # [id number]
== END ==
LOC: RAD 07:59
PROVIDERS: ATTEND Internal Medicine
DX: I10 Essential (primary) hypertension (principal); I65.23 Occlusion and stenosis of bilateral carotid arteries; R55 Syncope and collapse
CPT/HCPCS: 70450; 93880

== ENCOUNTER 2022-03-01 14:48 | Emergency (ER) | payer MEDICARE, OTHER ==
[~2022-03-01] VITALS: Ht 170 cm; Wt 102.0 kg
--- NOTE | 2022-03-01 15:31 | ED EENT ---
History of Present Illness General Chief Complaint: Eye Problems Stated Complaint: CONGESTION,POPE, Nursing Triage Note: PT AMB TO RM 6 WITH WITH C/O L EYE REDNESS AND SORENESS THAT BEGAN YESTERDAY EVENING. L EYE HAS PUSSY DRAINAGE ALSO. HE NOTICED A SEVERE POPE LAST NIGHT WHILE TRYING TO SLEEP ALSO Source: patient, spouse Exam Limitations: no limitations History of Present Illness Date Seen by Provider: March 01, 2022 Time Seen by Provider: 15:10 Initial Comments Patient to the ER by private conveyance with a spouse and chief complaint for the past 1 day he has had some increasing redness warmth swelling and irritation around his left eye as well as a headache. He is had some nasal congestion and thought maybe he had a sinus infection earlier. He is not on antibiotics. 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 Allergies and Home Medications Allergies Coded Allergies: No Known Drug Allergies (Unverified , 04/27/10) Patient Home Medication List Home Medication List Reviewed: Yes Amlodipine Besylate (Amlodipine Besylate) 5 Mg Tablet, 5 MG PO DAILY, (Reported) Entered as Reported by: EZEQUIEL GONZALEZ on 01/04/17 08 Aspirin (Aspirin Ec 81 Mg) 81 Mg Tabec, 81 MG PO HS, (Reported) Entered as Reported by: JAKE BRAGG on 04/27/10 0948 Atorvastatin Calcium (Lipitor 40MG) 40 Mg Tablet, 40 MG PO HS, (Reported) Entered as Reported by: JAKE BRAGG on 04/27/10 0948 Carboxymethylcellulose Sodium (Refresh Celluvisc) 1 Each Droper.gel, 1 DROP OS HS, (Reported) Entered as Reported by: EZEQUIEL GONZALEZ on 01/04/17828 Carboxymethylcellulose Sodium (Refresh Tears) 15 Ml Drops, 1-2 DROPS OU QID PRN for DRY EYES, (Reported) Entered as Reported by: EZEQUIEL GONZALEZ on 01/04/17828 Cefdinir (Cefdinir) 300 Mg Capsule, 300 MG PO BID Prescribed by: CHENCHO CONTRERAS on 01/05/17 1023 Diclofenac Sodium (Diclofenac Sodium) 75 Mg Tablet.dr, 75 MG PO BID PRN for BACK PAIN, (Reported) Entered as Reported by: EZEQUIEL GONZALEZ on 01/04/17828 Difluprednate (Durezol) 5 Ml Drops, 1 DROP OS HS, (Reported) Entered as Reported by: EZEQUIEL GONZALEZ on 01/04/17828 Fexofenadine HCl (Renea Allergy) 180 Mg Tablet, 180 MG PO DAILY, (Reported) Entered as Reported by: EZEQUIEL GONZALEZ on 01/04/17829 Fluticasone/Salmeterol (Advair 250-50 Diskus) 1 Each Blst.w.dev, 1 PUFF INH DAILY, (Reported) Entered as Reported by: EZEQUIEL GONZALEZ on 01/04/17828 Glimepiride (Glimepiride) 1 Mg Tablet, 1 MG PO DAILY, (Reported) Entered as Reported by: EZEQUIEL GONZALEZ on 01/04/17828 Hydrocodone Bit/Acetaminophen (Lortab 5 Mg Tablet) 1 Each Tablet, 1 TAB PO 0700,1500, (Reported) Entered as Reported by: EZEQUIEL GONZALEZ on 01/04/17816 Hydrocodone Bit/Acetaminophen (Lortab 5 Mg Tablet) 1 Each Tablet, 2 TAB PO HS, (Reported) Entered as Reported by: EZEQUIEL GONZALEZ on 01/04/17828 Losartan/Hydrochlorothiazide (Losartan-Hctz 100-25 mg Tab) 1 Each Tablet, 1 TAB PO DAILY, (Reported) Entered as Reported by: EZEQUIEL GONZALEZ on 01/04/17816 [place]-3 Fatty Acids/Fish Oil (Fish Oil 1,200 mg Softgel) 1 Each Capsule, 1,200 MG PO BID, (Reported) Entered as Reported by: EZEQUIEL GONZALEZ on 01/04/17828 Omeprazole (Omeprazole) 20 Mg Capsule.dr, 20 MG PO HS, (Reported) Entered as Reported by: EZEQUIEL GONZALEZ on 01/04/17816 Oseltamivir Phosphate (Tamiflu) 75 Mg Cap, 0 EACH PO BID Prescribed by: CHENCHO CONTRERAS on 01/05/17 102 Polymyxin B Sulf/Trimethoprim (Polymyxin B-Tmp Eye Drops) 10 Ml Drops, 1 DROP OS QID, (Reported) Entered as Reported by: EZEQUIEL GONZALEZ on 01/04/17828 Prednisone (Prednisone) 10 Mg Tab.ds.pk, 10 MG PO DAILY Prescribed by: CHENCHO CONTRERAS on 01/05/17 1023 Sennosides/Docusate Sodium (Mala-Colace Tablet) 1 Each Tablet, 1 TAB PO BID, (Reported) Entered as Reported by: EZEQUIEL GONZALEZ on 01/04/17 0829 Review of Systems Review of Systems Constitutional: No chills, No diaphoresis Eyes: Denies Blindness, Denies Blurred Vision Ears: See HPI; Denies Dizziness; Pain, Purulent Discharge, Previous Injury Nose: denies congestion, denies epistaxis Mouth: denies clots, denies pain, denies swelling Throat: denies pain, denies swelling Respiratory: No cough, No short of breath Cardiovascular: No chest pain, No palpitations Gastrointestinal: No abdominal pain, No nausea, No vomiting Musculoskeletal: No joint swelling, No muscle pain All Other Systems Reviewed Negative Unless Noted: Yes Past Kprfghc-Boeitd-Kitfsj Hx Patient Social History Tobacco Use?: No Smoking Status: Former Smoker Substance use?: No Alcohol Use?: Yes Alcohol type: Beer Alcohol Frequency: Daily Pt feels they are or have been: No Immunizations Up To Date PED Vaccines UTD: No First/Initial COVID19 Vaccinat: 2020 Second COVID19 Vaccination Dominguez: 2020 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[email or web address] Seasonal Allergies Seasonal Allergies: Yes Past Medical History Surgery/Hospitalization HX: htn, dm, copd, gerd Surgeries: Yes Eye Surgery, Orthopedic Respiratory: Yes Pneumonia, COPD Currently Using CPAP: Yes Currently Using BIPAP: No Cardiac: Yes High Cholesterol, Hypertension Neurological: No Reproductive Disorders: No Genitourinary: Yes Renal Failure Gastrointestinal: Yes Gastroesophageal Reflux, Chronic Constipation Musculoskeletal: Yes Arthritis, Chronic Back Pain, Fractures Endocrine: Yes Diabetes, Non-Insulin dep HEENT: Yes Cataract, Eye Injury Loss of Vision: Left Hearing Impairment: Hard of Hearing Cancer: No Psychosocial: No Integumentary: No Blood Disorders: No Adverse Reaction/Blood Tranf: No Family Medical History Arthritis 19 FATHER 19 MOTHER G8 SISTER FH: breast cancer 19 MOTHER FH: congestive heart failure 19 MOTHER FH: lung cancer 19 FATHER FH: ovarian cancer G8 SISTER Seizure disorder G8 SISTER Physical Exam Vital Signs Vital Signs - First Documented 03/01/22 15:02 Temp 36.9 Pulse 77 Resp 18 B/P (MAP) 163/74 (103) Height, Weight, BMI Height: 5'7.00" Weight: 237lbs. 4.0oz. 107.125219mh; 35.00 BMI Method:Stated General Appearance: WD/WN, no apparent distress Eyes: right eye normal inspection, right eye PERRL, right eye EOMI; left eye other (Left eye is injected, red uveitis with conjunctival injection little bits of stringy white mucus and soft tissue surrounding the orbits especially inferior to the left orbit is erythematous, warmth and swollen consistent with a cellulitis) Ears: bilateral ear auricle normal, bilateral ear canal normal, bilateral ear TM normal Nose: normal inspection; No active bleeding, No discharge Mouth/Throat: normal mouth inspection, pharynx normal, dental tenderness Neck: non-tender, full range of motion, supple Cardiovascular: normal peripheral pulses, regular rate, rhythm, no edema Respiratory: lungs clear, normal breath sounds, no respiratory distress, no accessory muscle use 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 as tested (With 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), no motor/sensory deficits Skin: other (Periorbital soft tissue erythematous and swollen.) Progress/Results/Core Measures Results/Orders Lab Results Laboratory Tests Test 03/01/22 15:56 Range/Units White Blood Count 7.7 4.3-11.0 10^3/uL Red Blood Count 4.15 L 4.30-5.52 10^6/uL Hemoglobin 13.0 L 13.3-17.7 g/dL Hematocrit 38 L 40-54 % Mean Corpuscular Volume 92 80-99 fL Mean Corpuscular Hemoglobin 31 25-34 pg Mean Corpuscular Hemoglobin Concent 34 32-36 g/dL Red Cell Distribution Width 13.2 10.0-14.5 % Platelet Count 186 130-400 10^3/uL Mean Platelet Volume 10.1 9.0-12.2 fL Immature Granulocyte % (Auto) 1 % Neutrophils (%) (Auto) 74 42-75 % Lymphocytes (%) (Auto) 15 12-44 % Monocytes (%) (Auto) 9 0-12 % Eosinophils (%) (Auto) 1 0-10 % Basophils (%) (Auto) 0 0-10 % Neutrophils # (Auto) 5.7 1.8-7.8 10^3/uL Lymphocytes # (Auto) 1.1 1.0-4.0 10^3/uL Monocytes # (Auto) 0.7 0.0-1.0 10^3/uL Eosinophils # (Auto) 0.1 0.0-0.3 10^3/uL Basophils # (Auto) 0.0 0.0-0.1 10^3/uL Immature Granulocyte # (Auto) 0.1 0.0-0.1 10^3/uL Sodium Level 141 135-145 MMOL/L Potassium Level 3.7 3.6-5.0 MMOL/L Chloride Level 108 H 98-107 MMOL/L Carbon Dioxide Level 21 21-32 MMOL/L Anion Gap 12 5-14 MMOL/L Blood Urea Nitrogen 23 H 7-18 MG/DL Creatinine 0.98 0.60-1.30 MG/DL Estimat Glomerular Filtration Rate 79 BUN/Creatinine Ratio 23 Glucose Level 105 70-105 MG/DL Calcium Level 8.9 8.5-10.1 MG/DL C-Reactive Protein High Sensitivity 2.33 H 0.00-0.50 MG/DL My Orders Orders - ANNA WINSTON Ed Iv/Invasive Line Start (03/01/22 15:39) Ns Iv 500 Ml (Sodium Chloride 0.9%) (03/01/22 15:45) Ct Head/Maxillofacial Wo (03/01/22 15:39) Ketorolac Injection (Toradol Injection) (03/01/22 15:45) Ceftriaxone 1 Gm Pre-Mix (Rocephin 1 Gm (03/01/22 15:45) Cbc With Automated Diff (03/01/22 15:39) Basic Metabolic Panel (03/01/22 15:39) Hs C Reactive Protein (03/01/22 15:39) Tetracaine 0.5% Ophth Ivett Sdv (Tetracai (03/01/22 15:45) Fluorescein Strips (Pzkgb-W-Lmchvn) (03/01/22 15:45) Tetracaine 0.5% Ophth Ivett Sdv (Tetracai (03/01/22 15:52) Fluorescein Strips (Pvbda-A-Iboqwq) (03/01/22 15:53) Medications Given in ED Current Medications Medications Dose Ordered Sig/Malik Route Start Time Stop Time Status Last Admin Dose Admin Ceftriaxone Sodium/Dextrose 50 ml @ 100 mls/hr ONCE ONCE IV 03/01/22 15:45 03/01/22 16:14 DC 5/10/22 15:48 100 MLS/HR Fluorescein Sodium 1 mg ONCE ONCE OU 03/01/22 15:45 03/01/22 15:46 DC 03/01/22 15:58 1 MG Ketorolac Tromethamine 30 mg ONCE ONCE IVP 03/01/22 15:45 03/01/22 15:46 DC 03/01/22 15:49 30 MG Sodium Chloride 500 ml @ 0 mls/hr Q0M ONCE IV 03/01/22 15:45 03/01/22 15:46 DC 03/01/22 15:48 500 MLS/HR Tetracaine HCl 4 ml ONCE ONCE OU 03/01/22 15:45 03/01/22 15:46 DC 03/01/22 15:58 4 ML Vital Signs/I&O 03/01/22 15:02 Temp 36.9 Pulse 77 Resp 18 B/P (MAP) 163/74 (103) Blood Pressure Mean: 103 Progress Progress Note #1: Time: 15:41 Progress Note We will get a CT maxillofacial to rule out a preseptal cellulitis/abscess. He seems to be having facial cellulitis surrounding the orbit and uveitis. Plan to put him on topical gentamicin and cefdinir which would cover for typical sinus infection and eye infection and cellulitis. Have him follow-up with his want ad clerk/juvenile justice specialist within the next week. We will give him a gram of Rocephin while he is here. Progress Note #2: Time: 16:30 Progress Note Under fluorescein stain and Joyner lamp examination no herpetic lesions. There are some mucus seen. Diagnostic Imaging Diagonstic Imaging: CT Plain Films/CT/US/NM/MRI: facial bones Comments [facility]. [place], [place] NAME: ASHUTOSH YBARRA [facility] REC#: [id number] PT STATUS: REG ER : 1945 PHYSICIAN: ANNA WINSTON MD ADMIT DATE: 03/01/22/ER Draft Date of Exam:03/01/22 CT HEAD/MAXILLOFACIAL WO PROCEDURE: CT head and maxillofacial without contrast. TECHNIQUE: Multiple contiguous axial images were obtained through the head and facial bones without the use of intravenous contrast. Auto Exposure Controls were utilized during the CT exam to meet ALARA standards for radiation dose reduction. INDICATION: Headache. Chronic left eye infection. COMPARISON: 03/09/2021. FINDINGS: CT head: The ventricles and cortical sulci are age-appropriate. There is no midline shift or mass-effect. No acute intracranial hemorrhage is seen. There is no CT evidence of acute territorial ischemia. No focal masses or collections are present. The calvarium is intact. CT face: Postsurgical changes are again noted in the left globe. There is preseptal inflammation on the left with associated mild skin thickening. There is faint fat stranding in the retrobulbar fat on the left. No evidence of fluid collection to suggest abscess. No inflammatory changes are seen in the right orbit. The right globe is intact. The bilateral extraocular muscles are symmetric and unremarkable. No acute facial fractures are visualized. The mandible, zygomatic arches, and pterygoid plates are intact. The bilateral TMJ demonstrate normal articulation. No nasal bone fractures. The bony nasal septum is midline without fracture. The paranasal sinuses and mastoid air cells are well pneumatized. IMPRESSION: 1. No hemorrhage or focal intra-axial mass. No CT evidence of large acute territorial ischemia. 2. Preseptal inflammation involving the left orbit with suggestion of mild inflammatory changes in the retrobulbar fat. No evidence of abscess. Recommend correlation with physical exam and follow-up as indicated. 3. No acute facial fractures. Dictated on workstation # [id number] Dict: 03/01/22 1649 Trans: 03/01/22 1702 [id number] Interpreted by: SEA GRACE DO Electronically signed by: Reviewed: Reviewed by Me Departure Impression Primary Impression: Uveitis of left eye Additional Impression: Periorbital cellulitis of left eye Disposition: 01 HOME, SELF-CARE Condition: Stable Departure-Patient Inst. Decision time for Depature: 18:17 Referrals: CHENCHO CONTRERAS DO (PCP/Family) Primary Care Physician Patient Instructions: Orbital Cellulitis (DC), Uveitis (DC) Add. Discharge Instructions: Cefdinir 1 capsule twice a day for the next 10 days to treat the infection around your eye. Gentamicin 1/2 inch ribbon at the lower eyelid 3 times a day for a week to treat infection. Hydrocodone 1 tablet every 6 hours as needed for severe breakthrough pain. Will cause constipation and drowsiness. Follow-up with your want ad clerk or juvenile justice specialist in 1 to 2 weeks for reexamination. Return to the ER promptly for significantly worsening redness, swelling, intractable pain, fever above 102.5 or vomiting. All discharge instructions reviewed with patient and/or family. Voiced understanding. Scripts Hydrocodone/Acetaminophen (Hydrocodone-Acetamin 5-325 mg) 5 Mg-325 Mg Tablet 1 TAB PO Q6H PRN for PAIN-MODERATE (5-7), #10 TAB 0 Refills Prov: ANNA WINSTON 03/01/22 Cefdinir (Cefdinir) 300 Mg Capsule 300 MG PO BID for 10 Days, #20 CAP 0 Refills Prov: ANNA WINSTON 03/01/22 Gentamicin Sulfate (Gentamicin Sulfate) 0.3 % Oint...g. 0.5 INCH OP TID for 7 Days, #1 EA 0 Refills Prov: ANNA WINSTON 03/01/22 ANNA WINSTON March 01, 2022 15:31
[2022-03-01] MEDS ORDERED: TETRACAINE 0.5% OPHTH SOLN 4 ML BTL (SINGLE DOSE ONLY) OU ONE (15:45)
[2022-03-01] MEDS ORDERED: FLUORESCEIN (FLUOR-I-STRIPS) 1 MG STRP OU ONE (15:45)
[2022-03-01] MEDS ORDERED: NS IV 500 ML 500 ML IV ONE (15:45)
[2022-03-01] MEDS ORDERED: KETOROLAC 30 MG/ML VIAL IVP ONE (15:45)
[2022-03-01] MEDS ORDERED: cefTRIAXone 1 GM PRE-MIX 50 ML IV ONE (15:45)
[2022-03-01] MEDS ORDERED: TETRACAINE 0.5% OPHTH SOLN 4 ML BTL (SINGLE DOSE ONLY) ONE (15:52)
[2022-03-01] MEDS ORDERED: FLUORESCEIN (FLUOR-I-STRIPS) 1 MG STRP ONE (15:53)
[2022-03-01 16:13] LABS: BASOPHILS % (AUTO) 0 % (0-10); EOSINOPHILS # (AUTO) 0.1 10^3/uL (0.0-0.3); EOSINOPHILS % (AUTO) 1 % (0-10); HEMATOCRIT 38 % (40-54); LYMPHOCYTES # (AUTO) 1.1 10^3/uL (1.0-4.0); LYMPHOCYTES % (AUTO) 15 % (12-44); MEAN CORPUSCULAR HEMOGLOBIN 31 pg (25-34); MEAN CORPUSCULAR HGB CONC 34 g/dL (32-36); MEAN CORPUSCULAR VOLUME 92 fL (80-99); MEAN PLATELET VOLUME 10.1 fL (9.0-12.2); MONOCYTES # (AUTO) 0.7 10^3/uL (0.0-1.0); MONOCYTES % (AUTO) 9 % (0-12); NEUTROPHILS # (AUTO) 5.7 10^3/uL (1.8-7.8); NEUTROPHILS % (AUTO) 74 % (42-75); PLATELET COUNT 186 10^3/uL (130-400); WHITE BLOOD COUNT 7.7 10^3/uL (4.3-11.0)
[2022-03-01 16:28] LABS: POTASSIUM 3.7 MMOL/L (3.6-5.0)
[2022-03-01 16:29] LABS: CALCIUM 8.9 MG/DL (8.5-10.1)
[2022-03-01 16:34] LABS: CREATININE SERUM 0.98 MG/DL (0.60-1.30)
--- NOTE | 2022-03-01 17:03 | Diagnostic Imaging Report ---
PROCEDURE: CT head and maxillofacial without contrast. TECHNIQUE: Multiple contiguous axial images were obtained through the head and facial bones without the use of intravenous contrast. Auto Exposure Controls were utilized during the CT exam to meet ALARA standards for radiation dose reduction. INDICATION: Headache. Chronic left eye infection. COMPARISON: 03/09/2021. FINDINGS: CT head: The ventricles and cortical sulci are age-appropriate. There is no midline shift or mass-effect. No acute intracranial hemorrhage is seen. There is no CT evidence of acute territorial ischemia. No focal masses or collections are present. The calvarium is intact. CT face: Postsurgical changes are again noted in the left globe. There is preseptal inflammation on the left with associated mild skin thickening. There is faint fat stranding in the retrobulbar fat on the left. No evidence of fluid collection to suggest abscess. No inflammatory changes are seen in the right orbit. The right globe is intact. The bilateral extraocular muscles are symmetric and unremarkable. No acute facial fractures are visualized. The mandible, zygomatic arches, and pterygoid plates are intact. The bilateral TMJ demonstrate normal articulation. No nasal bone fractures. The bony nasal septum is midline without fracture. The paranasal sinuses and mastoid air cells are well pneumatized. IMPRESSION: 1. No hemorrhage or focal intra-axial mass. No CT evidence of large acute territorial ischemia. 2. Preseptal inflammation involving the left orbit with suggestion of mild inflammatory changes in the retrobulbar fat. No evidence of abscess. Recommend correlation with physical exam and follow-up as indicated. 3. No acute facial fractures. Dictated by: Dictated on workstation # [id number]
[2022-03-01] MEDS ORDERED: CEFD300C3 PO ×2 (18:22→18:27)
[2022-03-01] MEDS ORDERED: ACHD5005 PO ×2 (18:22→18:27)
[2022-03-01] MEDS ORDERED: GENT3.5O6 OP ×2 (18:22→18:27)
[2022-03-01 18:37] VITALS: BP 161/99
== END 2022-03-01 18:36 | disposition home or self-care (01) ==
LOC: EDUNIT# 14:48 → ER 14:50
DX: H20.9 Unspecified iridocyclitis (principal); L03.213 Periorbital cellulitis; J44.9 Chronic obstructive pulmonary disease, unspecified; Z99.89 Dependence on other enabling machines and devices; Z87.891 Personal history of nicotine dependence; Z98.890 Other specified postprocedural states
CPT/HCPCS: 36415; 70450; 70486; 80048; 85025; 86141

== ENCOUNTER 2023-01-04 06:02 | Outpatient (CLI) | payer MEDICARE, OTHER ==
[~2023-01-04] VITALS: Ht 170.2 cm; Wt 108.0 kg
[~2023-01-04 06:02] MED LIST changes: +GENT3.5O6 OP; -PLTR10OP OS; +POLY10DR31 OS
[2023-01-04] MEDS ORDERED: LATA7.5D OP (10:44)
== END 2023-01-04 10:49 ==
LOC: PREOP 06:02
PROVIDERS: ATTEND Surgery
DX: Z01.818 Encounter for other preprocedural examination (principal); Z12.11 Encounter for screening for malignant neoplasm of colon; K29.70 Gastritis, unspecified, without bleeding

== ENCOUNTER 2023-01-16 08:51 | Day surgery (SDC) | payer MEDICARE, OTHER ==
[~2023-01-16] VITALS: Ht 170 cm; Wt 108.0 kg
[~2023-01-16 08:51] MED LIST changes: +LATA7.5D OP
[2023-01-16] MEDS ORDERED: LACTATED RINGERS 1,000 ML IV STA (08:52)
[2023-01-16] MEDS ORDERED: HURRICAINE EXT TUBE (BENZOCAINE) XX PRN (09:00)
[2023-01-16 09:20] VITALS: BP 147/70
--- NOTE | 2023-01-16 09:42 | Progress Note-Pre Operative ---
Pre-Operative Progress Note Date of Available H&P: Dec 22, 2022 Date H&P Reviewed: Jan 16, 2023 Time H&P Reviewed: 09:39 History & Physical: H&P Reviewed, Patient Examed, No changes noted Pre-Operative Diagnosis: Gastritis, Screening Colonoscopy ALLEN MEDINA DO Jan 16, 2023 09:42
[2023-01-16] MEDS ORDERED: PROPOFOL INJECTION 50 ML IV ONE (10:15)
[2023-01-16 10:56] VITALS: BP 117/57
--- NOTE | 2023-01-16 10:58 | Progress Note-Post Operative ---
Post-Operative Progess Note Surgeon (s)/Plant Manager (s) Surgeon ALLEN MEDINA DO Plant Manager: Panchito Lima, MSIII Pre-Operative Diagnosis Gastritis, Screening Colonoscopy Post-Operative Diagnosis Gastritis Gastric polyp small sliding hiatal hernia Polyp diverticulosis int hemorrhoids Procedure & Operative Findings Date of Procedure 01/16/23 Procedure Performed/Findings EGD with bx Colon with hot bx PROCEDURE NOTE: After informed consent was obtained, the patient was brought to the endoscopy suite, placed in bed in left lateral decubitus position. He was administered IV sedation by the HISTORIC SITE ADMINISTRATOR who then monitored vitals the entire time, heart rate, blood pressure and pulse ox and the scope was inserted down the mouth through the esophagus into the stomach. On the way down, noted some mild esophagitis, took a picture, pushed into the stomach, pushed past the antrum into the duodenum. Duodenum looked good. Pulled back and did a biopsy of the antrum, then retroflexed the scope, saw a small sliding hiatal hernia, took a picture of this and noted gastric polyps. Elected to do a cold biopsy to remove one of the polyps. Then pulled the scope into the GE junction and took another picture of the hiatal hernia; then did a biopsy of the GE junction. Pushed the scope back into the stomach, suctioned all the air out of the stomach. At this point pulled the scope up the esophagus and at the top saw some changes, elected to do another biopsy up here. Finally pulled the scope out the mouth. Switched camera, switched gloves, went down below and started the colonoscopy. Pushed all the way to about 150 cm and pushed into the cecum. On the way in noted some diverticula (he actually had them on left and right side of colon) and took a picture of them. Once in the Cecum, took a picture of appendiceal orifice and noted the ileocecal valve. Then slowly withdrew the scope insufflating to look circumferentially at the bañuelos starting in the cecum, up the ascending colon to the hepatic flexure, then down the transverse colon to the splenic flexure and into the descending colon. I found a small polyp here and elected to remove it with hot biopsy. Continued down into the sigmoid and then into the rectal vault and retroflexed the scope. Took picture of the internal hemorrhoids. The patient tolerated the procedure and he recovered in the endoscopy suite. Recommended for repeat colonoscopy in 5 years Anesthesia Type IV sedation by HISTORIC SITE ADMINISTRATOR Estimated Blood Loss Estimated blood loss (mL): scant Specimens/Packing Specimens Removed antral bx gastric polyp GE jxn bx upper esophagus bx Desc colon polyp ALLEN MEDINA DO Jan 16, 2023 10:58
--- NOTE | 2023-01-16 10:59 | Endoscopy Discharge Instruct ---
Endo Procedure/Findings Findings 1.: Gastritis 2.: Hiatal Hernia 3.: Polyp 4.: Diverticulosis, Internal Hemorrhoids Discharge Instructions - Activity: You might feel a little sleepy until tomorrow. This is due to the medicine you received to relax you. Until tomorrow, you should: NOT drive a car, operate machinery or power tools. NOT drink any alcoholic beverages. NOT make any important decisions or sign importortant papers. Do not return to work until tomorrow, unless otherwise instructed. Resume previous activities tomorrow. Diet: Start by taking liquids. If you tolerate liquids, advance to solid food. 1.: EGD in 3 years 2.: Colonscopy in 5 years Notify Physician - If you experience excessive bleeding, unusual abdominal pain, fever, or chest pain, contact your doctor immediately. ALLEN MEDINA DO Jan 16, 2023 10:59
[2023-01-16 11:01] VITALS: BP 113/57
[2023-01-16 11:02] VITALS: BP 113/57
[2023-01-16 11:45] VITALS: BP 113/57
--- NOTE | 2023-01-16 12:50 | Anesthesia-General Post-Op ---
MAC Patient Condition Mental Status/LOC: Same as Preop Cardiovascular: Satisfactory Nausea/Vomiting: Absent Respiratory: Satisfactory Pain: Controlled Complications: Absent Post Op Complications Complications None Follow Up Care/Instructions Patient Instructions None needed. Anesthesiology Discharge Order Discharge Order Patient is doing well, no complaints, stable vital signs, no apparent adverse anesthesia problems. No complications reported per nursing. WALTER AMIN CRNA Jan 16, 2023 12:50
== END 2023-01-16 11:48 | disposition home or self-care (01) ==
LOC: ENDO 08:51
PROVIDERS: ATTEND Surgery
DX: Z12.11 Encounter for screening for malignant neoplasm of colon (principal); K29.50 Unspecified chronic gastritis without bleeding; K31.89 Other diseases of stomach and duodenum; K31.7 Polyp of stomach and duodenum; K44.9 Diaphragmatic hernia without obstruction or gangrene; K63.5 Polyp of colon; K57.30 Diverticulosis of large intestine without perforation or abscess without bleeding; K64.8 Other hemorrhoids; K21.00 Gastro-esophageal reflux disease with esophagitis, without bleeding; K22.70 Barrett's esophagus without dysplasia; Z87.891 Personal history of nicotine dependence; G47.33 Obstructive sleep apnea (adult) (pediatric); E11.9 Type 2 diabetes mellitus without complications; E66.9 Obesity, unspecified; Z79.84 Long term (current) use of oral hypoglycemic drugs; Z68.37 Body mass index [BMI] 37.0-37.9, adult
CPT/HCPCS: 88305

== ENCOUNTER → 2023-05-02 | Outpatient (CLI) | payer MEDICARE, OTHER ==
[~2023-05-02] MED LIST changes: +POLY10DR20 OS; -POLY10DR31 OS
--- NOTE | 2023-05-02 17:46 | Diagnostic Imaging Report ---
INDICATION: Bilateral knee pain AP, oblique, and lateral and sunrise views of both knees are obtained. No fracture or acute bony abnormality is seen. There is marked medial joint space narrowing with osteophyte formation and [id number] contact. There is moderate lateral joint space narrowing with osteophyte formation. The patellofemoral joints show prominent spurring on both sides. There is no definite joint effusion. There is a questioned loose body in the right suprapatellar joint space superiorly. IMPRESSION: Extensive degenerative changes of both knees as described above. Findings are most severe in the medial compartments. There is no acute fracture. Dictated by: Dictated on workstation # [id number]
== END ==
LOC: ORTHO 14:09
PROVIDERS: ATTEND Orthopaedic Surgery
DX: M17.0 Bilateral primary osteoarthritis of knee (principal)
CPT/HCPCS: 20610; 73564; G0463; 99203

== ENCOUNTER → 2023-06-01 | Outpatient (CLI) | payer MEDICARE, OTHER | LOC: ORTHO 10:18 | PROVIDERS: ATTEND Orthopaedic Surgery | DX: M17.0 Bilateral primary osteoarthritis of knee (principal) | CPT/HCPCS: 99213 ==

== ENCOUNTER → 2023-09-05 | Outpatient (CLI) | payer MEDICARE, OTHER | LOC: ORTHO 14:38 | PROVIDERS: ATTEND Orthopaedic Surgery | DX: M17.0 Bilateral primary osteoarthritis of knee (principal) | CPT/HCPCS: 20610; G0463; 99213 ==